=== PATIENT | female | born 1995 | race Caucasian/White ===

== ENCOUNTER 2016-05-07 22:47 | Emergency (ER) | payer MEDICAID, OTHER ==
[~2016-05-07] VITALS: Ht 175.3 cm; Wt 99.0 kg
[~2016-05-07 22:47] MED LIST: ALBU2.5I INH; IBUP800T23 PO; PERC5TAB12 PO
[2016-05-07 22:50] VITALS: BP 124/64; PULSE 92; RESP 16; TEMP 98; O2SAT 100
[2016-05-07] MEDS ORDERED: AMOX500C PO (23:40)
[2016-05-07] MEDS ORDERED: HYDR-3533 PO (23:40)
[2016-05-07] MEDS ORDERED: ACETAMINOPHEN/HYDROcodone 325 MG/5 MG TAB PO ONE (23:45)
[2016-05-07] MEDS ORDERED: AMOXICILLIN (TRIHYDRATE) 500 MG CAP PO ONE (23:45)
--- NOTE | 2016-05-07 23:47 | PD ---
HPI Chief Complaint: Oral / Dental Pain or Problem Time Seen by Provider: 23:40 Travel History International Travel<30 days: No Contact w/Intl Traveler<30days: No Traveled to known affect area: No History of Present Illness HPI 21-year-old female presents to emergency Department with complaints of bilateral lower molar pain. She states that she been having pain for quite some time. She is 8 months . She denies any fever or chills. No nausea vomiting. No abdominal pain. No leakage of fluid. PFSH Past Medical History Narrative Medical Asthma Respiratory: Yes (ASTHMA) Tetanus Vaccination: < 5 Years ?: LMP: 16-8 MONTHS Social History Alcohol Use: No Tobacco Use: No Substance Use: No Allergies-Medications (Allergen,Severity, Reaction): Coded Allergies: Singulair (Verified Adverse Reaction, Intermediate, bruises, 05/07/16) Reported Meds & Prescriptions Reported Meds & Active Scripts Active Percocet (Oxycodone/Acetaminophen) 5 Mg/325 Mg Tab 1 Tab PO Q6H PRN Ibuprofen 800 Mg Tab 800 Mg PO Q8 PRN Reported Resp: Albuterol 2.5 Mg/3 Ml Neb (Albuterol Sulfate) 2.5 Mg/3 Ml Nebu 2.5 Mg INH Q3H PRN Review of Systems Except as stated in HPI: all other systems reviewed are Neg Physical Exam Narrative GENERAL: Well-developed, well-nourished in no acute distress. Nontoxic appearing. HEAD: Normocephalic, atraumatic. EYES: Pupils equal round and reactive. Extraocular motions intact. No scleral icterus. No injection or drainage. ENT: TMs clear without erythema. The external auditory canals clear. Nose: clear . Posterior pharynx is pink and moist. No tonsillar edema or exudate. Uvula midline. Airway patent. Patient has impacted wisdom teeth. Her left lower third molar has a developing dental carry. No gingival erythema or edema. NECK: Trachea midline.Supple, nontender, moves head freely. No central bony tenderness or spasm. CARDIOVASCULAR: Regular rate and rhythm without murmurs, gallops, or rubs. RESPIRATORY: Clear to auscultation. Breath sounds equal bilaterally. No wheezes , rales, or rhonchi. GASTROINTESTINAL: Abdomen soft, non-tender, gravid uterus. No guarding. EXTREMITIES: No clubbing, cyanosis, or edema. No joint tenderness, effusion, or edema noted. BACK: Nontender without deformity or crepitance. No flank tenderness. Data Data Last Documented VS Vital Signs Date Time Temp Pulse Resp B/P Pulse Ox O2 Delivery O2 Flow Rate FiO2 05/07/16 22:50 98.0 92 16 124/64 100 Room Air Orders Amoxicillin (Trimox) (05/07/16 23:45) Acetamin-Hydrocod 325-5 Mg ([place] 5-325 (05/07/16 23:45) MDM Medical Decision Making Medical Screen Exam Complete: Yes Emergency Medical Condition: Yes Medical Record Reviewed: Yes Differential Diagnosis MDM: Moderate Differential diagnoses: Dental abscess, dental caries, osteitis, cellulitis Narrative Course Patient's given amoxicillin 500 mg and Lortab 5 milligram by mouth. This is dentalgia, impacted wisdom teeth Diagnosis Primary Impression: Dentalgia Additional Impression: impacted wisdom teeth Patient Instructions: Narcotic given in the ED, General Instructions Additional Instructions: Rest. [place] gargles. [place] oil on cotton balls. Amoxicillin and Lortab follow-up with a dentist as soon as possible. And return to the ER if any problems. Med/Other Pt SpecificInfo: Prescription(s) given Scripts Hydrocodone-Acetaminophen (Lortab)5-325 Mg Tab0.5 Tab PO Q8HR PRN (PAIN) #12 TAB Prov:Xena Camacho 05/07/16 Amoxicillin 500 Mg Isn546 Mg PO TID #30 CAP Prov:Xena Camacho 05/07/16 Disposition: 01 DISCHARGE HOME Condition: Stable Brent Noel May 07, 2016 23:47
== END 2016-05-08 00:50 | disposition home or self-care (01) ==
LOC: NEPB 22:47
DX: K01.1 Impacted teeth (principal)
CPT/HCPCS: 99282